=== PATIENT | female | born 1970 | race Caucasian/White ===

== ENCOUNTER 2019-01-06 17:26 | Emergency (ER) | payer OTHER ==
[~2019-01-06] VITALS: Ht 157.5 cm; Wt 77.1 kg
[2019-01-06] MEDS ORDERED: AZITHROMYCIN 2250 MG PO (17:59)
[2019-01-06 18:31] VITALS: BP 190/56
== END 2019-01-06 18:34 | disposition home or self-care (01) ==
LOC: M.ERS 17:26
DX: R07.89 Other chest pain (principal); R06.02 Shortness of breath; Z86.2 Personal history of diseases of the blood and blood-forming organs and certain disorders involving the immune mechanism